=== PATIENT | female | born 1985 | race Caucasian/White ===

== ENCOUNTER 2016-07-23 15:13 | Emergency (ER) | payer OTHER ==
[~2016-07-23] VITALS: Wt 76.0 kg
[2016-07-23] MEDS ORDERED: ZOLP10TA PO ×3 (15:47→16:09)
--- NOTE | 2016-07-23 16:07 | ERD ---
ER Documentation Chief Complaint Date/Time DATE: 07/23/16 TIME: 15:59 Chief Complaint ANXIETY, INSOMINIA, HEADACHE X 1 WEEK HPI This is a 30-year-old female presenting to emergency department for insomnia, anxiety and headache 1 week. Patient states she has been taking Ambien 10 mg nightly since July 2015 and lorazepam 1 mg as needed. Patient states she started a new job recently and was unable to see her psychiatrist Dr. Rosenthal. Patient states she is out of her prescriptions for about 1 week. Patient states she has not been able to sleep and slept for about 3 hours last night. Patient states her next appointment is 08/19/2016. Patient is requesting refill her for her medication. Patient states currently she is not feeling anxious. No chest pain, heart palpitations, shortness breath or difficulty breathing. No other drug use. ROS All systems reviewed and are negative except as per history of present illness. Medications Home Meds Active Scripts Zolpidem Tartrate* (Ambien*) 10 Mg Tablet, 10 MG PO QHS Y for INSOMNIA, #10 TAB Prov:YELITZA DUMONT NP 07/23/16 Physical Exam Vitals Vital Signs Date Time Temp Pulse Resp B/P Pulse Ox O2 Delivery O2 Flow Rate FiO2 07/23/16 15:15 98.0 105 18 155/105 99 Physical Exam Const: No acute distress, alert Head: Atraumatic Eyes: Normal Conjunctiva ENT: Normal External Ears, Nose and Mouth. Neck: Full range of motion..~ No meningismus. Resp: Clear to auscultation bilaterally Cardio: Regular rate and rhythm, no murmurs Abd: Soft, non tender, non distended. Normal bowel sounds Skin: No petechiae or rashes Back: No midline or flank tenderness Ext: No cyanosis, or edema Neur: Awake and alert Psych: Normal Mood and Affect Procedures/MDM ED COURSE: The patient was stable throughout ED course. I kept the patient and/or family informed of laboratory and diagnostic imaging results throughout the ED course. MDM: 22-year-old female presents emergency department for insomnia and anxiety 1 week. Patient states she has been taking Ambien 10 mg every night for about 1 year. Patient states she was unable to see her psychiatrist at the last visit and therefore is out of her medication. Patient states she has been unable to sleep for the past week and has gotten about 3 hours of sleep last night after taking a dose of a friend's prescription for Xanax. No chest pain, shortness of breath or difficulty breathing. No heart palpitations or shaking. Discussed case with Dr. Montano who agreed that patient is appropriate for outpatient care. A CURES report was obtained that showed patient received a prescription for Ambien 10mg #20 on 07/05/16. Vital signs are stable. Patient is appropriate for outpatient management will be given prescription for Ambien 10 mg #10. Instructed patient to follow-up with primary care provider or psychiatrist Dr. Rosenthal for reassessment and additional management. Return to ED for any high fever, chest pain, difficulty breathing, shortness breath, wheezing, vomiting, diarrhea, abdominal pain or any new or worsening symptoms. Patient verbalizes understanding. All questions answered at discharge. Departure Diagnosis: Primary Impression: Insomnia Insomnia type: unspecified Qualified Code: G47.00 - Insomnia, unspecified type Condition: Stable Patient Instructions: Insomnia Referrals: [facility] YOU HAVE RECEIVED A MEDICAL SCREENING EXAM AND THE RESULTS INDICATE THAT YOU DO NOT HAVE A CONDITION THAT REQUIRES URGENT TREATMENT IN THE EMERGENCY DEPARTMENT. FURTHER EVALUATION AND TREATMENT OF YOUR CONDITION CAN WAIT UNTIL YOU ARE SEEN IN YOUR DOCTORS OFFICE WITHIN THE NEXT 1-2 DAYS. IT IS YOUR RESPONSIBILITY TO MAKE AN APPOINTMENT FOR FOLOW-UP CARE. IF YOU HAVE A PRIMARY DOCTOR --you should call your primary doctor and schedule an appointment IF YOU DO NOT HAVE A PRIMARY DOCTOR YOU CAN CALL OUR PHYSICIAN REFERRAL HOTLINE AT IF YOU CAN NOT AFFORD TO SEE A PHYSICIAN YOU CAN CHOSE FROM THE FOLLOWING [facility] [address] [facility] [address] [facility] [facility] [address] [facility] [address] [facility] [address] [facility]. [facility]. [address] [facility]. [facility] YOU HAVE RECEIVED A MEDICAL SCREENING EXAM AND THE RESULTS INDICATE THAT YOU DO NOT HAVE A CONDITION THAT REQUIRES URGENT TREATMENT IN THE EMERGENCY DEPARTMENT. FURTHER EVALUATION AND TREATMENT OF YOUR CONDITION CAN WAIT UNTIL YOU ARE SEEN IN YOUR DOCTORS OFFICE WITHIN THE NEXT 1-2 DAYS. IT IS YOUR RESPONSIBILITY TO MAKE AN APPOINTMENT FOR FOLOW-UP CARE. IF YOU HAVE A PRIMARY DOCTOR --you should call your primary doctor and schedule and appointment IF YOU DO NOT HAVE A PRIMARY DOCTOR YOU CAN CALL OUR PHYSICIAN REFERRAL HOTLINE AT . IF YOU CAN NOT AFFORD TO SEE A PHYSICIAN YOU CAN CHOSE FROM THE FOLLOWING [facility] INSTITUTIONS: [facility] [address] [place] [address] [facility] [address] [place] [address] [facility] [address] [place] [address] Additional Instructions: Call your primary care doctor TOMORROW for an appointment during the next 2-3 days.See the doctor sooner or return here if your condition worsens before your appointment time. Return to ED for any high fever, chest pain, difficulty breathing, shortness breath, wheezing, vomiting, diarrhea, abdominal pain or any new or worsening symptoms. YELITZA DUMONT NP Jul 23, 2016 16:07
== END 2016-07-23 16:10 | disposition home or self-care (01) ==
LOC: FTE 15:13
DX: G47.00 Insomnia, unspecified (principal)
CPT/HCPCS: 99283

== ENCOUNTER 2016-08-13 14:41 | Emergency (ER) | payer OTHER ==
[~2016-08-13] VITALS: Ht 170.2 cm; Wt 81.2 kg
[~2016-08-13 14:41] MED LIST: ZOLP10TA PO
[2016-08-13 14:44] VITALS: Ht 170.2 cm; Wt 81.2 kg
[2016-08-13] MEDS ORDERED: ZOLP10TA PO (16:44)
--- NOTE | 2016-08-13 20:07 | ERD ---
ER Documentation Chief Complaint Date/Time DATE: 08/13/16 TIME: 20:02 Chief Complaint REFILL OF AMBIEN HPI This is a 22-year-old female presenting to emergency department for refill of medication. Patient states she needs a refill of her Ambien medication patient was last seen here 07/23/2016 and received Ambien 10 mg #22 and stated that she had an appointment with her psychiatrist Dr. Stern on 08/19/2016. Patient states she did have to take more than 1 pill on one night and therefore she is going to run out in a few days. Patient requesting Ambien 10 mg 7 pills. Denies chest pain, shortness breath or difficulty breathing. Patient states she is not currently feeling anxious. ROS All systems reviewed and are negative except as per history of present illness. Medications Home Meds Active Scripts Zolpidem Tartrate* (Ambien*) 10 Mg Tablet, 10 MG PO QHS Y for INSOMNIA, #7 TAB Prov:YELITZA DUMONT NP 08/13/16 Zolpidem Tartrate* (Ambien*) 10 Mg Tablet, 10 MG PO QHS Y for INSOMNIA, #22 TAB Prov:YELITZA DUMONT NP 07/23/16 Allergies Allergies: Coded Allergies: No Known Allergy (Unverified , 08/13/16) PMhx/Soc Medical and Surgical Hx: pt denies Medical Hx, pt denies Surgical Hx History of Surgery: No Anesthesia Reaction: No Hx Neurological Disorder: No Hx Respiratory Disorders: No Hx Cardiac Disorders: No Hx Psychiatric Problems: No Hx Miscellaneous Medical Probl: No Hx Alcohol Use: No Hx Substance Use: No Hx Tobacco Use: No Smoking Status: Never smoker Physical Exam Vitals Vital Signs Date Time Temp Pulse Resp B/P Pulse Ox O2 Delivery O2 Flow Rate FiO2 08/13/16 14:44 98.1 76 18 127/76 99 Physical Exam Const: No acute distress, alert Head: Atraumatic Eyes: Normal Conjunctiva ENT: Normal External Ears, Nose and Mouth. Neck: Full range of motion..~ No meningismus. Resp: Clear to auscultation bilaterally Cardio: Regular rate and rhythm, no murmurs Abd: Soft, non tender, non distended. Normal bowel sounds Skin: No petechiae or rashes Back: No midline or flank tenderness Ext: No cyanosis, or edema Neur: Awake and alert Psych: Normal Mood and Affect Procedures/MDM 22-year-old female presents emergency department for refill of Ambien prescription. Patient received Ambien 10 mg #22 tabs on 07/23/2016. Patient states she did have to take more than 1 pill per day and therefore she does not have enough medication until her next appointment on 08/19/[address] Rosenthal. Patient is requesting 7 pills to last till next appointment. A cures report was generated that revealed that patient's last medication was the one that she received here and patient has not gotten any other medications filled since then. Patient will be given a prescription for Ambien 10 mg #7. Vital signs are stable. Patient is alert, cooperative and calm. Low suspicion for drug seeking behavior or abuse. Diagnosis is insomnia and medication refill Patient is appropriate for outpatient management will be given prescription for Ambien. Instructed patient to follow-up with psychiatrist Dr. Serrano on 2016. Return to ED for any high fever, chest pain, difficulty breathing, shortness breath, wheezing, vomiting, diarrhea, abdominal pain or any new or worsening symptoms. Patient verbalizes understanding. All questions answered at discharge. Departure Diagnosis: Primary Impression: Encounter for medication refill Condition: Stable Patient Instructions: Insomnia Referrals: MATILDA MCKEE (PCP) Additional Instructions: Call your primary care doctor TOMORROW for an appointment during the next 2-3 days.See the doctor sooner or return here if your condition worsens before your appointment time. Return to ED for any high fever, chest pain, difficulty breathing, shortness breath, wheezing, vomiting, diarrhea, abdominal pain or any new or worsening symptoms. YELITZA DUMONT NP Aug 13, 2016 20:07
== END 2016-08-13 17:23 | disposition home or self-care (01) ==
LOC: FTE 14:41
DX: Z76.0 Encounter for issue of repeat prescription (principal)
CPT/HCPCS: 99281